=== PATIENT | male | born 1995 | race Hispanic/Latino ===

== ENCOUNTER 2023-12-15 03:28 | Emergency (ER) | payer SELFPAY ==
[2023-12-15] MEDS ORDERED: Lidocaine 1% PF 5 ML VIAL ONE (03:46)
[2023-12-15] MEDS ORDERED: Amoxicillin/Potassium Clav 875 MG TAB ONE (03:56)
[2023-12-15] MEDS ORDERED: Acetaminophen 500 MG TAB ONE (04:47)
== END 2023-12-15 04:58 | disposition home or self-care (01) ==
LOC: ERS 03:28
DX: S01.551A Open bite of lip, initial encounter (principal); S01.511A Laceration without foreign body of lip, initial encounter; W54.0XXA Bitten by dog, initial encounter
CPT/HCPCS: 40650

== ENCOUNTER 2023-12-23 11:26 | Emergency (ER) | payer SELFPAY | END 2023-12-23 11:48 | disposition home or self-care (01) | LOC: ERS 11:26 | DX: S01.411D Laceration without foreign body of right cheek and temporomandibular area, subsequent encounter (principal); W54.0XXD Bitten by dog, subsequent encounter ==